=== PATIENT | female | born 1990 | race American Indian/Alaskan Native ===

== ENCOUNTER 2017-10-14 02:37 | Inpatient (IN) | payer MEDICAID ==
[2017-10-14] MEDS ORDERED: LACTATED RINGERS 500 ML IV ONE (02:40)
[2017-10-14] MEDS ORDERED: XYLOCAINE 2% INFILTRATI ONE (03:34)
[2017-10-14] MEDS ORDERED: BRETHINE SUB-Q PRN (03:34)
[2017-10-14] MEDS ORDERED: NARCAN 0.4 MG/1 ML IV PRN (03:34)
[2017-10-14] MEDS ORDERED: ePHEDrine SULFATE IV PRN (03:34)
[2017-10-14] MEDS ORDERED: BRETHINE IVP PRN (03:34)
[2017-10-14] MEDS ORDERED: MINERAL OIL PO PRN (03:34)
[2017-10-14] MEDS ORDERED: STADOL IV PRN (03:34)
[2017-10-14] MEDS ORDERED: SUBLIMAZE IV PRN (03:44)
--- NOTE | 2017-10-14 03:44 | History and Physical Report ---
History of Present Illness Date of examination: 10/14/17 Date of admission: 10/14/2017 Chief complaint: 27 yo [id number] who has had only a few visits with us. She came to L&D today saying that she was in labor and had been renetta at home and had passed a bloody mucus plug at home. She was found to be 4 cm, 50%, -2 and intact. She was renetta irregularly. Her EDC by dates was 10/28/17 but an ultrasound on her first visit on 09/19/17 was 31+6 weeks making her EDC 11/15/17 (this is a 3 week +1 day difference) that puts her now at 35 weeks +3d by u/s---(by her LMP she would be 38 weeks + 0 days). Two of her children weighed less than 5# at delivery so she probably has a history of other deliveries. She was treated 09/30 for positive Chlamydia, unknown if partner got treatment. We will admit her and treat for labor with Mag for neuroprotection and to get steroids in, give steroids and retreat for Chlamydia for presumed recontact with untreated partner. Will assess fetus with monitor currently Cat 1 and limited u/s to get JAYCEE and EFW. MBT B+, Rub Im, GBS not done yet and unknown. History of present illness: Remainder of H&P from [facility] and confirmed today CC: pelvic pain. History of Present Illness: This is a 27 years old female who presents with pelvic pain. She denies dysuria, dysmenorrhea, dyspareunia, vaginal itching, vaginal discharge, vaginal odor, painful bowel movements, constipation, diarrhea, nausea, vomiting, back pain and fever. Pain is located umbilicus and low back. She describes the pain as achy and cramping. Episodes are intermittent and unpredictable. Patient notes pain is worse with standing. OB Intake Ethnicity: Vital Signs Height: 67 in. Weight (lb): 116 BMI: 18.2 BP: 114/ 64 mm Hg Ur. Protein: 1+ Ur. Glucose: Negative Chief Complaint/Current Status: c/o missed period.......................igarcia pt sts she is taking some medication for HPV with T. pt sts she had green discharge Menstrual History Regularity: regular Menses every: 28 days Duration: 4 LMP: 01/14/2017 LMP reliability: definite LMP character: normal test type: urine test Date: 09/19/2017 BC at conception: none EDC Calculations LMP: 10/21/2017 EDC Confirmation: 11/15/2017 Gestational Age: 31 6/7 weeks Past History : 8 Term Births: 4 Premature Births: 0 Living Children: 4 Para: 4 Mult. Births: 0 Prev : 0 Prev. attempt? 0 Aborta: 3 Elect. Ab: 0 Spont. Ab: 3 Ectopics: 0 # 1 Delivery date: 10/04/2010 Weeks Gestation: 37 labor: no Delivery type: Hours of labor: 8 Anesthesia type: IV Delivery location: [facility] Sex: Male weight: 5-11 Name: Dinh # 2 Delivery date: 10/06/2011 Weeks Gestation: 37 labor: no Delivery type: Hours of labor: 8 Anesthesia type: IV Delivery location: [facility] Sex: Female weight: 4-7 Name: Stefanie # 3 Delivery date: 2012 Weeks Gestation: 12 Delivery type: SAB Comments: No D&C # 4 Delivery date: 01/30/2015 Weeks Gestation: 37 labor: no Delivery type: Hours of labor: 6 Anesthesia type: IV Delivery location: [facility] Sex: Female weight: 5-5 Name: Gustavo # 5 Delivery date: 09/14/2015 Weeks Gestation: 37 labor: no Delivery type: Hours of labor: 6 Anesthesia type: IV Delivery location: [place] Sex: Male weight: 4-14 Name: Greg # 6 Delivery date: 05/2016 Weeks Gestation: 6 Delivery type: SAB Comments: No D&C # 7 Delivery date: 10/2016 Weeks Gestation: 12 Delivery type: SAB Comments: No D&C Past Medical History: scoliosis Past Surgical History: Back surgery (2001) eric placed for scoliosis Family History Summary: Other family member - Has No Family History of Ovarvian Cancer - Entered On: 09/19 Other family member - Has No Family History of Colon Cancer - Entered On: 2017 Other family member - Has No Family History of Breast Cancer - Entered On: 2017 Other family member - Has Family History of Renal Disease - Entered On: 09/19/2017 Other family member - Has Family History of Hypertension - Entered On: 09/19/2017 Other family member - Has Family History of Diabetes - Entered On: 09/19/2017 Social History: Unemployed [employer] Patient is single Risk Factors: Smoked Tobacco Use: Current every day smoker Counseled to quit/cut down: yes Drug use: no HIV high-risk behavior: low risk Alcohol use: yes Drinks per day: social Dietary Counseling: pn yes Past Medical History 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 of genital herpes: no Genetic History Congenital Heart Defect: Mom: no Dad: no Kelsea Disease: Mom: no Dad: no Thalassemia Mom: no Dad: no Neural Tube Defect Mom: no Dad: no Down's Syndrome Mom: no Dad: no Abram-Sachs Mom: no Dad: no Sickle Cell Disease/Trait Mom: no Dad: no Hemophilia Mom: no Dad: no Muscular Dystrophy Mom: no Dad: no Cystic Fibrosis Mom: no Dad: no Brundidge Chorea Mom: no Dad: no Mental Retardation Mom: no Dad: no Fragile X Mom: no Dad: no Other Genetic/Chromosomal Disorder Mom: no Dad: no Child w/other defect Mom: no Dad: no Active Medications (reviewed today): None Current Allergies (reviewed today): No known allergies Laboratory Results Date/Time Collected: 09/19/2017 Routine Urinalysis Leukocytes: negative Nitrite: negative Urobilinogen: negative Protein: 1+ Blood: negative Ketone: negative Bilirubin: negative Glucose: Negative Urine HCG: positive Review of Systems General Complains of fatigue. Denies fever, chills, sweats, anorexia, weakness, malaise, weight loss and sleep disorder. Complains of pelvic pain. Denies vaginal discharge, incontinence, dysuria, hematuria, urinary frequency, amenorrhea, menorrhagia, abnormal vaginal bleeding, genital sores, decreased libido, painful periods, painful sex, urinary urgency, hot flashes, vaginal dryness, vaginal itching and vaginal odor. CV Denies chest pains, palpitations, syncope, dyspnea on exertion, orthopnea, PND and peripheral edema. Resp Denies cough, dyspnea at rest, excessive sputum, hemoptysis, wheezing and pleurisy. GI Denies nausea, vomiting, diarrhea, constipation, change in bowel habits, abdominal pain, melena, hematochezia, jaundice, gas/bloating, indigestion/ heartburn, dysphagia and odynophagia. Breast Denies left breast lump, right breast lump, nipple discharge, bloody discharge from nipple, breast pain, abnormal mammogram and breast enlargement. MS Complains of back pain. Psych Denies depression, anxiety, irritability and mood swings. PHYSICAL EXAM HEENT: normocephalic, no lesions or deformities Neck/Thyroid: supple, thyroid normal Skin no significant abnormal lesions or rashes Chest: respiratory effort normal, clear to auscultation Breasts: skin/areolae normal, no masses, no nipple discharge, no erythema/warmth /tenderness, and axillae normal. 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 2) Review normal weight gain and proper nutrition during . 3) Advice on healthy diet for reviewed and information provided. 4) Stressed importance of taking folic acid and vitamins. 5) Hazards of smoking and reviewed; smoking cessation strongly encouraged and smoking cessation techniques reviewed. 6) Stressed the risks of alcohol and drug use in including risk of premature delivery, small baby (SGA), abruption, and . 7) Counseled on HIV testing. 8) No work restrictions at this time. 9) Patient agrees that all care provided and delivery performed only at [facility]. 10) Patient recieved guide book and encouraged to read. 11) Patient understands she will be delivered by the MD/CNEnrrique board of education secretary for the practice. Impression & Recommendations: Problem # 1: Pelvic pain, acute (ICD-789.09) (RPX70-D04.2) Assessment: New Discussed ultrasound findings Diagnosis explained to patient . Questions answered. 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 Questions answered. Precautions given Orders: Urine Test (UPT) (CPT-40907) Ofc Vst New 37140 (CPT-32885) Problem # 4: Encounter for screening for infections with a predominantly sexual mode of transmission (ICD-V74.5) (EQZ31-T48.3) Assessment: New Orders: Pap(<30yo) CT/NG rflx HR HPV (Q-82791)([id number]) (CPT-91105) Ofc Vst New 62371 (CPT-34834) Problem # 5: Supervision of with insufficient care, unspecified trimester (ICD-V23.7) (KEV39-S96.30) Patient Instructions: 1) Advised to follow-up in 2 weeks. 2) Advised of the recommendation to perform a self-breast exam and taught the proper way to perform a self-breast exam. 3) Educated regarding alcohol use and advised to limit or eliminate alcohol use. 4) Educated regarding exercise recommendations. 5) Advised to stop smoking. 6) Educated to use condoms to limit exposure to sexually transmitted diseases. 7) Cervical cytology done. 8) Advised to schedule a follow-up appointment to receive test results. Past History - Obstetrical History : 8 Medications and Allergies Allergies Allergy/AdvReac Type Severity Reaction Status Date / Time No Known Allergies Allergy Verified 10/14/17 02:45 Active Meds: Active Medications Butorphanol Tartrate (Stadol) 2 mg IV Q2H PRN PRN Reason: Pain , Severe (7-10) Ephedrine Sulfate (Ephedrine Sulfate) 10 mg IV Q2M PRN PRN Reason: Hypotension Fentanyl (Sublimaze) 100 mcg IV Q2H PRN PRN Reason: Labor Pain Ampicillin Sodium (Polycillin/Ns 1 Gm/50 Ml) 1 gm in 50 mls @ 100 mls/hr IV Q4H UNIQUE; Protocol Lactated Ringer's (Lactated Ringers) 1,000 mls @ 125 mls/hr IV DIRECT UNIQUE Oxytocin/Sodium Chloride (Pitocin/Ns 20 Unit/1000ml Drip) 20 units in 1,000 mls @ 125 mls/hr IV DIRECT UNIQUE Lidocaine (Xylocaine 2%) 20 ml INFILTRATI ONCE ONE Stop: 10/14/17 03:35 Mineral Oil (Mineral Oil) 30 ml PO QHS PRN PRN Reason: Constipation Naloxone HCl (Narcan 0.4 Mg/1 Ml) 0.1 mg IV Q2MIN PRN PRN Reason: Res Rate </= 8 or 02 SAT < 92% Terbutaline Sulfate (Brethine) 0.25 mg SUB-Q ONCE PRN PRN Reason: Hyperstimulation/Hypertonicity Terbutaline Sulfate (Brethine) 0.25 mg IVP ONCE PRN PRN Reason: Hyperstimulation/Hypertonicity - Vital Signs Vital signs: Vital Signs Pulse Pulse Ox 80 100 10/14/17 03:00 10/14/17 03:00 Temp Pulse Resp BP Pulse Ox 75 112/64 100 10/14/17 03:01 10/14/17 03:01 10/14/17 03:00 Results All other labs normal. Assessment and Plan - Patient Problems (1) labor in third trimester Onset Date: ~03/05/18 Current Visit: Yes Status: Acute Qualifiers: Fetus number: single or unspecified fetus Plan to address problem: Admit, steroids for labor, Mag for neuroprotection, retreat for Chlamydia infection which she has possibly been re-exposed to. Evaluate size of fetus. (2) Chlamydia infection affecting in third trimester, antepartum Current Visit: Yes Status: Acute (3) Insufficient care in third trimester Current Visit: Yes Status: Acute
[2017-10-14] MEDS ORDERED: PITOCin/NS 20 UNIT/1000ML DRIP 20 UNITS/1,000 ML BAG IV SCH (04:00)
[2017-10-14] MEDS ORDERED: LACTATED RINGERS 1,000 ML IV SCH (04:00)
[2017-10-14] MEDS ORDERED: MAGNESIUM SULFATE 4GM/100ML 4 GM/100 ML BAG IV ONE ×2 (04:06→04:14)
[2017-10-14] MEDS ORDERED: ZITHROMAX PO ONE (04:10)
[2017-10-14 04:30] LABS: Hematocrit 37.6 % (30.3-42.9); Hemoglobin 12.1 gm/dl (10.1-14.3); Mean Corpuscular HGB Conc 32 % (30-34); Mean Corpuscular Hemoglobin 30 pg (28-32); Mean Corpuscular Volume 92 fl (79-97); Platelet Count 196 K/mm3 (140-440); Red Cell Distribution Width 14.4 % (13.2-15.2)
[2017-10-14] MEDS ORDERED: MAGNESIUM SULFATE 40 GM in NACL 0.9% 1000 ML 1,000 ML IV SCH (04:30)
[2017-10-14] MEDS: CELESTONE SOLUSPAN IM SCH ×2 (04:53→18:37)
[2017-10-14] MEDS ORDERED: MAGNESIUM SULFATE 40GM/1000ML 40 GM/1,000 ML BAG IV SCH (05:00)
--- NOTE | 2017-10-14 05:39 | Ultrasound Report ---
FINAL REPORT EXAM: US OB FOLLOW UP HISTORY: EFW, JAYCEE TECHNIQUE: An OB follow-up exam was performed. Doppler interrogation of the fetus was obtained. There are no previous studies available for comparison. FINDINGS: There is a single viable intrauterine in cephalic presentation with an estimated gestational age of 32 weeks 1 day based on sonographic criteria. The estimated weight is 1854 grams. The heart rate is 141 BPM. The placenta is fundal in position and is grade 2. A complete survey of organs was not obtained. The JAYCEE is 2.8 centimeters which is decreased. IMPRESSION: Cephalic presentation, 32 week 1 day . Estimated weight is 1854 grams. Oligohydramnios. The JAYCEE is 2.8 cm which is decreased.
--- NOTE | 2017-10-14 06:38 | Progress Note ---
Assessment and Plan Pt is 35w3d in labor 4cm dilated BMZ given 1st dose this morning MGSO4 @ 2gm/hr for neuro protection Discussed POC with pt All questions addressed. Will consult with . Subjective - Subjective Date of service: 10/14/17 (pt resting No c/o voiced) Patient reports: movement normal Objective - Vital Signs Vital Signs: Vital Signs - 12hr 10/14/17 10/14/17 10/14/17 03:00 03:01 04:22 Temperature 98.5 F Pulse Rate 80 75 92 H Respiratory 18 Rate Blood Pressure 112/64 Blood Pressure 103/65 [Right] O2 Sat by Pulse 100 Oximetry 10/14/17 10/14/17 10/14/17 04:25 04:31 04:36 Temperature Pulse Rate 75 80 102 H Respiratory Rate Blood Pressure 103/65 Blood Pressure [Right] O2 Sat by Pulse 99 99 Oximetry 10/14/17 10/14/17 10/14/17 04:41 04:46 05:18 Temperature Pulse Rate 91 H 92 H 106 H Respiratory Rate Blood Pressure Blood Pressure [Right] O2 Sat by Pulse 99 98 100 Oximetry 10/14/17 10/14/17 10/14/17 05:23 05:28 05:33 Temperature Pulse Rate 94 H 88 99 H Respiratory Rate Blood Pressure Blood Pressure [Right] O2 Sat by Pulse 100 98 99 Oximetry 10/14/17 10/14/17 10/14/17 05:38 05:43 05:48 Temperature Pulse Rate 69 73 90 Respiratory Rate Blood Pressure Blood Pressure [Right] O2 Sat by Pulse 97 98 99 Oximetry 10/14/17 10/14/17 10/14/17 05:53 05:58 06:03 Temperature Pulse Rate 76 85 108 H Respiratory Rate Blood Pressure Blood Pressure [Right] O2 Sat by Pulse 99 98 99 Oximetry 10/14/17 10/14/17 10/14/17 06:08 06:13 06:18 Temperature Pulse Rate 101 H 76 79 Respiratory Rate Blood Pressure Blood Pressure [Right] O2 Sat by Pulse 99 97 98 Oximetry 10/14/17 10/14/17 10/14/17 06:23 06:28 06:33 Temperature Pulse Rate 74 117 H 92 H Respiratory Rate Blood Pressure Blood Pressure [Right] O2 Sat by Pulse 98 99 99 Oximetry - Exam Breasts: deferred Cardiovascular: Regular rate Lungs: Normal air movement Abdomen: Present: normal appearance, soft. Absent: distention, tenderness Uterus: Present: normal FHR: auscultation normal, category 1 Uterine Contraction Monitor Mode: External Cervical Dilatation: 4 (vertex is anterior) Cervical Effacement Percentage: 70 (pt was checked in lateral lying position) station: +1 Uterine Contraction Pattern: Irregular Uterine Tone Measurement Phase: Resting Uterine Contraction Intensity: Mild Extremities: normal Deep Tendon Reflex Grade: Normal +2 - Labs Labs: Laboratory Results - last 24 hr 10/14/17 04:00 WBC 10.4 RBC 4.10 Hgb 12.1 Hct 37.6 MCV 92 MCH 30 MCHC 32 RDW 14.4 Plt Count 196
[2017-10-14 07:07] LABS: Bilirubin,Urine NEG (Negative); Blood,Urine NEG (Negative); Color,Urine Straw (Yellow); Mucus,Urine FEW /HPF; Protein,Urine <15 mg/dL mg/dL (Negative); Urobilinogen,Urine < 2.0 mg/dL (<2.0); WBC,Urine < 1.0 /HPF (0.0-6.0)
[2017-10-14] MEDS: AMPICILLIN/NS 1 GM/50 ML 1 GM/50 ML BAG IV SCH ×3 (08:23→16:05)
[2017-10-14 17:00] LABS: Amphetamine Screen,Urine PRESUMPTIVE NEGATIVE; Benzodiazepines Screen,Urine PRESUMPTIVE NEGATIVE; Cannabinoid Screen,Urine PRESUMPTIVE NEGATIVE; Cocaine Screen,Urine PRESUMPTIVE NEGATIVE; Methadone Screen,Urine PRESUMPTIVE NEGATIVE; Opiate Screen,Urine PRESUMPTIVE NEGATIVE
--- NOTE | 2017-10-14 19:10 | Procedure Note ---
OB Delivery Note - Delivery Date of Delivery: 10/14/17 Etiquette Teacher: MARY CHURCHILL Estimated blood loss: 300cc - Vaginal Delivery presentation: vertex Delivery position: OA Intrapartum events: other(please specify) ( labor BMZ X 2 doses) Delivery induction: none Delivery monitor: external FHT, external uterine Route of delivery: Delivery placenta: spontaneous Delivery cord: 3 umbilical vessels Episiotomy: none Delivery laceration: none Anesthesia: none Delivery comments: Called urgently to LDR Pt 9cm dilated live born male over intact perineum NICU present Cord clamped and cut Baby to warmer Placenta and membrane del complete and intact, 3 vessel cord. 8/ 9, EBL 300, Wgt 5-2 Pit IVFs Mom and baby remain LDR stable - Infant A at 1 minute: 8 at 5 minutes: 9 Infant Gender: Male (wgt 5-2)
[2017-10-14] MEDS ORDERED: MILK OF MAGNESIA PO PRN (19:12)
[2017-10-14] MEDS ORDERED: DULCOLAX PR PRN (19:12)
[2017-10-14] MEDS ORDERED: TORADOL IV PRN (19:12)
[2017-10-14] MEDS ORDERED: PHENERGAN PO PRN (19:12)
[2017-10-14] MEDS ORDERED: TUCKS PAD TP PRN (19:12)
[2017-10-14] MEDS ORDERED: ZOFRAN IV PRN (19:12)
[2017-10-14] MEDS ORDERED: BENADRYL PO PRN (19:12)
[2017-10-14] MEDS ORDERED: LANSINOH TP PRN (19:12)
[2017-10-14] MEDS ORDERED: TYLENOL PO PRN (19:12)
[2017-10-14] MEDS: MOTRIN PO SCH (19:40)
[2017-10-14] MEDS ORDERED: SODIUM CHLORIDE FLUSH SYRINGE 10 ML IV NR (20:00)
[2017-10-14] MEDS: COLACE PO SCH (21:31)
[2017-10-15] MEDS: MOTRIN PO SCH ×2 (05:25→16:56)
[2017-10-15] MEDS ORDERED: BOOSTRIX IM ONE (06:00)
[2017-10-15] MEDS ORDERED: M-M-R II VACCINE SUB-Q ONE (06:00)
--- NOTE | 2017-10-15 06:09 | Progress Note ---
Assessment and Plan - Patient Problems (1) Spontaneous vaginal delivery Onset Date: ~10/14/17 Current Visit: Yes Status: Acute Plan to address problem: pt resting w/o complaint VSS FF below umb Lochia small perineum intact H&H pending Pt w/o s/sx of anemia. Doing well s/p vag delivery P: continue pathway Adv as tolerated D/C tomorrow Subjective - Subjective Date of service: 10/15/17 (pt w/o complaint) Principal diagnosis: Day # 1 s/p vaginal delivery Patient reports: appetite normal, voiding normally, pain well controlled, ambulating normally [place]: doing well Objective - Vital Signs Latest vital signs: Vital Signs Temp Pulse Resp BP BP Pulse Ox 10/15/17 04:15 98.0 F 96 H 18 95/52 10/15/17 00:00 98.2 F 94 H 18 97/57 10/14/17 20:00 97.5 F L 101 H 18 111/64 100 10/14/17 19:40 18 10/14/17 19:15 98.1 F 96 H 18 114/59 100 10/14/17 16:33 95 H 100 10/14/17 16:28 97 H 100 10/14/17 16:23 100 H 100 10/14/17 16:18 101 H 100 10/14/17 16:13 111 H 100 10/14/17 16:08 104 H 100 10/14/17 16:03 94 H 100 10/14/17 15:58 92 H 100 10/14/17 15:53 95 H 100 10/14/17 15:48 101 H 100 10/14/17 15:43 103 H 100 10/14/17 15:38 102 H 100 10/14/17 15:33 103 H 100 10/14/17 15:28 105 H 100 10/14/17 15:23 104 H 100 10/14/17 15:18 112 H 100 10/14/17 15:13 108 H 100 10/14/17 15:08 108 H 100 10/14/17 15:03 105 H 100 10/14/17 14:58 114 H 100 10/14/17 14:53 102 H 100 10/14/17 14:50 97.8 F 16 10/14/17 14:48 122 H 100 10/14/17 14:43 102 H 100 03/05/18 14:38 103 H 100 03/05/18 14:33 108 H 100 03/05/18 14:28 106 H 100 03/05/18 14:23 97 H 100 03/05/18 14:18 97 H 100 03/05/18 14:13 106 H 100 03/05/18 14:08 102 H 100 03/05/18 14:03 98 H 100 03/05/18 13:58 108 H 99 03/05/18 13:53 101 H 98 03/05/18 13:48 113 H 99 03/05/18 13:43 108 H 100 03/05/18 13:38 105 H 100 03/05/18 13:33 105 H 98 03/05/18 13:28 104 H 100 03/05/18 13:24 115 H 0 L 03/05/18 13:23 110 H 100 03/05/18 13:18 110 H 100 03/05/18 13:13 111 H 100 03/05/18 13:08 104 H 99 03/05/18 13:03 101 H 98 03/05/18 12:58 109 H 100 03/05/18 12:53 104 H 99 03/05/18 12:48 108 H 99 03/05/18 12:43 106 H 99 03/05/18 12:38 119 H 99 03/05/18 12:33 102 H 99 03/05/18 12:28 105 H 100 03/05/18 12:23 103 H 100 03/05/18 12:18 105 H 99 03/05/18 12:13 103 H 99 03/05/18 12:10 98.2 F 110 H 16 102/55 03/05/18 12:08 104 H 99 03/05/18 12:03 105 H 99 03/05/18 11:58 101 H 99 03/05/18 11:53 106 H 100 03/05/18 11:48 112 H 99 03/05/18 11:47 109 H 102/55 03/05/18 11:43 120 H 99 03/05/18 11:38 116 H 99 03/05/18 11:33 111 H 98 03/05/18 11:28 106 H 98 03/05/18 11:23 103 H 98 03/05/18 11:18 103 H 98 03/05/18 11:13 102 H 98 03/05/18 11:08 101 H 98 03/05/18 11:03 103 H 98 03/05/18 10:58 101 H 98 03/05/18 10:53 104 H 98 03/05/18 10:48 103 H 98 03/05/18 10:43 112 H 99 03/05/18 10:38 105 H 98 03/05/18 10:33 98 H 97 03/05/18 10:31 104 H 96/54 03/05/18 10:28 103 H 18 96/54 99 03/05/18 10:23 109 H 99 03/05/18 10:18 113 H 99 03/05/18 10:13 114 H 99 03/05/18 10:08 107 H 98 03/05/18 10:03 107 H 98 03/05/18 09:58 109 H 98 03/05/18 09:53 110 H 97 03/05/18 09:48 113 H 98 03/05/18 09:43 128 H 99 03/05/18 09:38 97 H 97 03/05/18 09:33 101 H 97 03/05/18 09:28 126 H 99 03/05/18 09:23 96 H 98 03/05/18 09:18 94 H 97 03/05/18 09:13 98 H 97 03/05/18 09:08 93 H 97 03/05/18 09:03 89 97 03/05/18 08:58 91 H 97 03/05/18 08:53 94 H 97 03/05/18 08:48 94 H 97 03/05/18 08:43 92 H 97 03/05/18 08:38 89 96 03/05/18 08:33 97 H 96 03/05/18 08:28 103 H 97 03/05/18 08:23 111 H 99 03/05/18 08:18 108 H 99 03/05/18 08:13 119 H 98 03/05/18 08:08 92 H 97 03/05/18 08:03 97 H 98 03/05/18 08:00 98 F 98 H 18 103/65 03/05/18 07:58 117 H 99 03/05/18 07:53 99 H 98 03/05/18 07:48 100 H 98 03/05/18 07:44 116 H 88 10/14/17 07:43 114 H 99 10/14/17 07:38 111 H 98 10/14/17 07:33 103 H 98 10/14/17 07:28 102 H 98 10/14/17 07:23 98 H 98 10/14/17 07:18 109 H 99 10/14/17 07:13 95 H 97 10/14/17 07:08 84 98 10/14/17 07:03 100 H 98 10/14/17 06:58 87 98 10/14/17 06:53 85 98 10/14/17 06:48 86 98 10/14/17 06:43 98 H 98 10/14/17 06:38 97 H 98 10/14/17 06:33 92 H 99 10/14/17 06:28 117 H 99 10/14/17 06:23 74 98 10/14/17 06:18 79 98 10/14/17 06:13 76 97 10/14/17 06:08 101 H 99 Intake and Output 10/14/17 10/14/17 10/15/17 14:59 22:59 06:59 Intake Total 700 120 Output Total 2600 1400 800 Balance -1900 -1400 -680 Intake: IV 100 AMPICILLIN/NS 1 GM/50 ML 100 1 gm In 50 ml @ 100 mls/ hr IV Q4H [facility] Rx#: [id number] Oral 600 120 Output: Urine 2600 1400 800 Indwelling Catheter 2600 1400 Void 800 Other: Total, Intake Amount 360 120 Total, Output Amount 900 200 800 Estimated Blood Loss 300 - Exam Breasts: Present: normal, other (bottle feeding) Cardiovascular: Present: Regular rate Lungs: Present: Normal air movement Abdomen: Present: normal appearance, soft Vulva: both: normal Uterus: Present: normal, firm, fundal height below umbilicus Extremities: Present: normal Deep Tendon Reflex Grade: Normal +2 Incision: Present: normal, dry, intact - Labs Labs: Abnormal lab results 10/14/17 Range/Units 19:20 Magnesium 6.20 H (1.7-2.3) mg/dL
[2017-10-15 06:33] LABS: Hematocrit 32.5 % (30.3-42.9); Hemoglobin 10.3 gm/dl (10.1-14.3)
[2017-10-15] MEDS: PRENATAL VITAMIN PO SCH (09:56)
[2017-10-15] MEDS: COLACE PO SCH ×2 (09:56→21:35)
[2017-10-16] MEDS: MOTRIN PO SCH ×3 (00:10→12:30)
--- NOTE | 2017-10-16 08:18 | Discharge Summary ---
Providers - Providers Date of Admission: 10/14/17 09:47 Date of discharge: 10/16/17 (pt desires d/c home) Attending physician: BEULAH STOCKTON Primary care physician: BEULAH STOCKTON Hospitalization Reason for admission: labor, limited care Condition: Good Procedures: vaginal delivery Hospital course: steroids and magnesium sulfate for neuro protection, vaginal delivery , and uncomplicated course. Disposition: DC-01 TO HOME OR SELFCARE - Discharge Diagnoses (1) Spontaneous vaginal delivery Status: Acute Core Measure Documentation - Palliative Care Palliative Care/ Comfort Measures: Not Applicable - Core Measures Any of the following diagnoses?: none Exam - Constitutional Vitals: Temp Pulse Resp BP Pulse Ox 97.5 F L 66 16 92/53 97 10/16/17 00:45 10/16/17 00:45 10/16/17 05:43 10/16/17 00:45 10/16/17 00:45 General appearance: Present: no acute distress, well-nourished - EENT Eyes: Present: PERRL ENT: hearing intact, clear oral mucosa - Neck Neck: Present: supple, normal ROM - Respiratory Respiratory effort: normal Respiratory: bilateral: CTA - Cardiovascular Heart Sounds: Present: S1 & S2. Absent: rub, click - Extremities Extremities: pulses symmetrical, No edema Peripheral Pulses: within normal limits - Abdominal General gastrointestinal: Present: soft, non-tender, non-distended, normal bowel sounds Female genitourinary: Present: normal - Integumentary Integumentary: Present: clear, warm, dry - Musculoskeletal Musculoskeletal: gait normal, strength equal bilaterally - Psychiatric Psychiatric: appropriate mood/affect, intact judgment & insight - Neurologic Neurologic: CNII-XII intact, moves all extremities - Additional findings Additional findings: Lochia scant, VSSAF, bottlefeeding , fundus firm. Patient desires depo for contraception prior to discharge. Patient does not plan on having son circumcised, advised if she changes her mind she can call the office to schedule after her son has been seen by peds. Plan Activity: no restrictions Diet: regular Follow up with: BEULAH STOCKTON MD [Primary Care Provider] - 6 Weeks (Congratulations! Please call [phone] to schedule your visit in 6 weeks. Call for any questions or concerns.)
[2017-10-16] MEDS ORDERED: DEPO-PROVERA (CONTRACEPTION) IM NR (09:30)
[2017-10-16] MEDS: PRENATAL VITAMIN PO SCH (12:30)
[2017-10-16] MEDS: COLACE PO SCH (12:30)
[2017-10-16] MEDS ORDERED: DEPO-PROVERA (CONTRACEPTION) IM ONE (17:35)
[2017-10-16 19:36] VITALS: BP 101/59
== END 2017-10-16 18:23 | disposition home or self-care (01) | DRG 774 ==
LOC: TRG 02:37 → LD 03:36 → OBSVTOIN 09:47 → OB 20:53
PROVIDERS: ADMIT Obstetrics & Gynecology; ATTEND Obstetrics & Gynecology
PROC: 10E0XZZ Delivery of Products of Conception, External Approach (ICD-10-PCS; principal; 2017-10-14)
PROC: 3E0234Z Introduction of Serum, Toxoid and Vaccine into Muscle, Percutaneous Approach (ICD-10-PCS; 2017-10-15)
DX: O60.14X0 Preterm labor third trimester with preterm delivery third trimester, not applicable or unspecified (principal); O98.32 Other infections with a predominantly sexual mode of transmission complicating childbirth; Z3A.35 35 weeks gestation of pregnancy; Z37.0 Single live birth; O99.334 Smoking (tobacco) complicating childbirth; F17.200 Nicotine dependence, unspecified, uncomplicated; Z71.6 Tobacco abuse counseling; Z72.89 Other problems related to lifestyle; O75.89 Other specified complications of labor and delivery; M41.9 Scoliosis, unspecified; A56.8 Sexually transmitted chlamydial infection of other sites; Z23 Encounter for immunization
CPT/HCPCS: 36415; 76816; 80307; 81001; 83735; 85014; 85018; 85027; 86592; 86850; 86900; 86901; 88307; 90715; J0290; J0702; J1050; J1885; J2590; J3475; J7030; J7120

== ENCOUNTER 2019-04-10 13:32 | Inpatient (IN) | payer MEDICAID ==
[2019-04-10] MEDS ORDERED: MINERAL OIL PO PRN (13:56)
[2019-04-10] MEDS ORDERED: BRETHINE SUB-Q PRN (13:56)
[2019-04-10] MEDS ORDERED: BRETHINE IVP PRN (13:56)
[2019-04-10] MEDS ORDERED: LACTATED RINGERS 1,000 ML IV SCH (14:00)
--- NOTE | 2019-04-10 14:13 | History and Physical Report ---
History of Present Illness Date of examination: 04/10/19 Date of admission: 04/10/2019 Chief complaint: labor History of present illness: Patient presents to triage as walk-in patient, reports having one visit with OB and was sent to [facility] for hx delivery, as given edc 04/18/19 dated by 20 week US. She reports not having care since then. SVE is 9.5 cm, BBOW, vtx, +1 station on presentation to labor room. She denies any hx of surgeries other than back surgery (rods) for scoliosis). She denies any complication with prior pregnancies and/or deliveries. 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 Multiple sticks unsuccessful, minimal sample obtained. Will attempt again after delivery as patient is unable to sit still in bed. Past History Past Medical History: no pertinent history, other (scoliosis) Past Surgical History: other (scoliosis sx, rods 2011) [employer] History: denies: abnormal PAP smear, cancer, chlamydia, fibroids, gonorrhea, hepatitis B, hepatitis C, herpes, HIV, syphilis, trichomonas Family/Genetic History: none Social history: smoking (reports marijuana during ) - Obstetrical History Expected Date of Delivery: 04/18/19 Actual Gestation: 39 Week(s) 0 Day(s) : 9 Para: 5 Induced : 5 Medications and Allergies Allergies Allergy/AdvReac Type Severity Reaction Status Date / Time No Known Allergies Allergy Verified 04/10/19 14:36 Home Medications Medication Instructions Recorded Confirmed Last Taken Type No Known Home Medications [No 10/14/17 10/14/17 Unknown History Reported Home Medications] Review of Systems Genitourinary: contractions - Physical Exam Breasts: Cardiovascular: Regular rate, Normal S1, Normal S2 Lungs: Positive: Clear to auscultation, Normal air movement Abdomen: Positive: normal appearance, soft. Negative: distention, tenderness Genitourinary (Female): Positive: normal external genitalia, normal perenium Vulva: both: normal Vagina: Positive: normal moisture. Negative: discharge Cervix: Negative: lesion, discharge Uterus: Positive: normal size, normal contour Adnexa: both: normal Anus/Rectum: Positive: normal perianal skin. Negative: rectal mass, hemorrhoids Extremities: Deep Tendon Reflex Grade: Normal +2 - Obstetrical FHR: auscultation normal Cervical Dilatation: 9.5 station: +1 Uterine Contraction Intensity: Strong/Firm Results Result Diagrams: 04/10/19 13:55 All other labs normal. Assessment and Plan WI patient essentially no care presents to triage 9cm BBOW with stated edc 04/18/19 which makes her 38.6. Routine admission orders with panel ordered. NICU called to notify of arrive, asked to be present for delivery. Abdomen appears to be small, patient report all her children are "around [address] Greco aware of admission and assessment, anticipate .
--- NOTE | 2019-04-10 14:14 | Procedure Note ---
OB Delivery Note - Delivery Date of Delivery: 04/10/19 Cosmetic Sales: AJAY VENCES Estimated blood loss: 100cc (150) - Vaginal Delivery presentation: vertex Delivery position: OA Intrapartum events: no care Delivery induction: none Delivery monitor: external FHT, external uterine Route of delivery: Delivery placenta: spontaneous Delivery cord: 3 umbilical vessels Episiotomy: none Delivery laceration: none Anesthesia: none Delivery comments: of viable female infant over intact perineum. Infant placed skin to skin on maternal abdomen, cord clamped x2 upon cessation of pulsation and cut by FOC. Drying ans stimulation produce vigorous cry. Placenta delivered complete and intact. Pit to IVF. no laceration noted. FF, ML. VB minimal. Hemostasis achieved. EBL 100. VSSAF> Patient reports she is comfortable now. Pericare provided. Infant remains in LDR with mother with NICU staff present. - A at 1 minute: 8 at 5 minutes: 9 Gender: Female (2446kg)
[2019-04-10 14:19] LABS: Hematocrit 37.3 % (30.3-42.9); Hemoglobin 12.3 gm/dl (10.1-14.3); Mean Corpuscular HGB Conc 33 % (30-34); Mean Corpuscular Volume 93 fl (79-97); Platelet Count 138 K/mm3 (140-440); Red Cell Distribution Width 14.6 % (13.2-15.2)
[2019-04-10 14:55] LABS: Amphetamine Screen,Urine PRESUMPTIVE NEGATIVE; Benzodiazepines Screen,Urine PRESUMPTIVE NEGATIVE; Cannabinoid Screen,Urine PRESUMPTIVE NEGATIVE; Cocaine Screen,Urine PRESUMPTIVE NEGATIVE; Methadone Screen,Urine PRESUMPTIVE NEGATIVE; Opiate Screen,Urine PRESUMPTIVE NEGATIVE
[2019-04-10] MEDS ORDERED: XYLOCAINE 2% INFILTRATI ONE (15:00)
[2019-04-10] MEDS ORDERED: PITOCin/NS 20 UNIT/1000ML DRIP 20 UNITS/1,000 ML BAG IV SCH ×2 (15:00→17:00)
[2019-04-10] MEDS ORDERED: LANSINOH TP PRN (16:40)
[2019-04-10] MEDS ORDERED: TUCKS PAD TP PRN (16:40)
[2019-04-10] MEDS ORDERED: MILK OF MAGNESIA PO PRN (16:40)
[2019-04-10] MEDS ORDERED: DULCOLAX PR PRN (16:40)
[2019-04-10] MEDS ORDERED: TYLENOL PO PRN (16:40)
[2019-04-10] MEDS ORDERED: ZOFRAN IV PRN (16:40)
[2019-04-10] MEDS ORDERED: BENADRYL PO PRN (16:40)
[2019-04-10] MEDS ORDERED: SODIUM CHLORIDE FLUSH SYRINGE 10 ML IV NR (17:00)
[2019-04-10] MEDS: IBUPROFEN PO SCH ×3 (17:01→23:20)
[2019-04-10 20:30] LABS: Hepatitis C Virus Antibody Non-Reactive (NonReactive)
[2019-04-11] MEDS: IBUPROFEN PO SCH ×5 (05:34→23:00)
[2019-04-11 06:27] LABS: Hematocrit 34.6 % (30.3-42.9); Hemoglobin 11.5 gm/dl (10.1-14.3)
--- NOTE | 2019-04-11 08:44 | Discharge Summary ---
Providers - Providers Date of Admission: 04/10/19 14:16 Date of discharge: 04/11/19 (desires d/c home when cleared) Attending physician: STELLA LUCIO Primary care physician: STELLA LUCIO Hospitalization Reason for admission: Labor Condition: Good Pertinent studies: Post delivery H&H 11.5/34.6 Procedures: Hospital course: uncomplicated and course Disposition: DC-01 TO HOME OR SELFCARE - Discharge Diagnoses (1) Spontaneous vaginal delivery Status: Acute Core Measure Documentation - Palliative Care Palliative Care/ Comfort Measures: Not Applicable - Core Measures Any of the following diagnoses?: none Exam - Constitutional Vitals: Temp Pulse Resp BP Pulse Ox 98.4 F 73 18 108/50 99 04/11/19 00:00 04/11/19 00:00 04/11/19 00:00 04/11/19 00:00 04/10/19 16:20 General appearance: Present: no acute distress, well-nourished - EENT Eyes: Present: PERRL ENT: hearing intact, clear oral mucosa - Neck Neck: Present: supple, normal ROM - Respiratory Respiratory effort: normal Respiratory: bilateral: CTA - Cardiovascular Heart Sounds: Present: S1 & S2. Absent: rub, click - Extremities Extremities: pulses symmetrical, No edema Peripheral Pulses: within normal limits - Abdominal General gastrointestinal: Present: soft, non-tender, non-distended, normal bowel sounds Female genitourinary: Present: normal - Integumentary Integumentary: Present: clear, warm, dry - Musculoskeletal Musculoskeletal: gait normal, strength equal bilaterally - Psychiatric Psychiatric: appropriate mood/affect, intact judgment & insight - Neurologic Neurologic: CNII-XII intact, moves all extremities - Additional findings Additional findings: Fundus firm, lochia scant, H&H stable, VSSAF Plan Activity: no restrictions Diet: regular Follow up with: STELLA LUCIO MD [Primary Care Provider] - 6 Weeks (Congratulations! Please call [phone] to schedule your visit in 6 weeks. Call for any questions or concerns.) Prescriptions: Ibuprofen [Motrin 800 MG tab] 800 mg PO Q8HR PRN #30 tablet PRN Reason: Pain
[2019-04-11] MEDS: PRENATAL VITAMIN PO SCH (10:00)
[2019-04-11] MEDS ORDERED: BOOSTRIX IM ONE (16:40)
[2019-04-12] MEDS: IBUPROFEN PO SCH (06:36)
[2019-04-12 08:49] VITALS: BP 104/60
[2019-04-12] MEDS: PRENATAL VITAMIN PO SCH (10:44)
== END 2019-04-12 16:32 | disposition home or self-care (01) | DRG 775 ==
LOC: TRG 13:32 → LD 13:39 → TRG 14:16 → OB 16:07
PROVIDERS: ADMIT Obstetrics & Gynecology; ATTEND Obstetrics & Gynecology
PROC: 10E0XZZ Delivery of Products of Conception, External Approach (ICD-10-PCS; principal; 2019-04-10)
PROC: 3E0234Z Introduction of Serum, Toxoid and Vaccine into Muscle, Percutaneous Approach (ICD-10-PCS; 2019-04-11)
DX: O99.324 Drug use complicating childbirth (principal); O99.334 Smoking (tobacco) complicating childbirth; F17.200 Nicotine dependence, unspecified, uncomplicated; F12.90 Cannabis use, unspecified, uncomplicated; Z23 Encounter for immunization; Z3A.39 39 weeks gestation of pregnancy; Z37.0 Single live birth
CPT/HCPCS: 36415; 80307; 85014; 85018; 85027; 86592; 86706; 86762; 86803; 86850; 86900; 86901; 87806; 88307; G0378; J2590